=== PATIENT | female | born 1995 | race African-American/Black ===

== ENCOUNTER → 2019-09-04 | Outpatient (CLI) | payer BC ==
[~2019-09-04] MED LIST: NO HOME MEDICATIONS; WELLBUTRIN 100100 MG PO; XANAX .25M0.25 MG/TA; ZOLOFT 100MG100 MG PO
== END ==
LOC: COL.RAD 09:00
DX: R59.0 Localized enlarged lymph nodes (principal)

== ENCOUNTER → 2020-10-06 | Outpatient (CLI) | payer BC ==
[~2020-10-06] VITALS: Ht 165.1 cm; Wt 84.9 kg
[~2020-10-06] MED LIST changes: +JOLESSA 30 MCG-1 TAB PO; +LEXAPRO20 MG PO; +RESTORIL 77.5 MG/CAP PO; +XANAX 1MG1 MG PO
[2020-10-06 13:16] VITALS: BP 135/81; PULSE 77
[2020-10-06 14:20] VITALS: BP 140/87; PULSE 82
== END ==
LOC: COL.RAD 12:47
DX: R59.0 Localized enlarged lymph nodes (principal)